=== PATIENT | male | born 1975 | race Caucasian/White ===

== ENCOUNTER 2017-01-14 12:42 | Emergency (ER) | payer OTHER ==
[2017-01-14] MEDS ORDERED: Meclizine 25 MG Tab PO ONE (12:44)
[2017-01-14] MEDS ORDERED: Ondansetron 4 MG/2 ML SDV IVPUSH ONE (12:45)
--- NOTE | 2017-01-14 12:46 | EDM.PDOC ---
ED HPI GENERAL MEDICAL PROBLEM - General Chief Complaint: Neurological Problem Stated Complaint: DIZZY Time Seen by Provider: 01/14/17 12:44 - History of Present Illness INITIAL COMMENTS - FREE TEXT/NARRATIVE: HISTORY AND PHYSICAL: History of present illness: Patient is 41-year-old white male presents with concern of dizziness with nausea and vomiting this came on acutely today and one episode in the remote past that resolved spontaneously denies any head trauma denies any visual disturbance he states this is worse with position changes and movement of his head he denies ear pain I chest pain palpitations or other concern. Review of systems: As per history of present illness and below otherwise all systems reviewed and negative. Past medical history: As per history of present illness and as reviewed below otherwise noncontributory. Surgical history: As per history of present illness and as reviewed below otherwise noncontributory. Social history: No reported history of drug or alcohol abuse. Family history: As per history of present illness and as reviewed below otherwise noncontributory. Physical exam: HEENT: Atraumatic, normocephalic, pupils reactive, negative for conjunctival pallor or scleral icterus, mucous membranes moist, throat clear, neck supple, nontender, trachea midline. Lungs: Clear to auscultation, breath sounds equal bilaterally, chest nontender. Heart: S1S2, regular, negative for clicks, rubs, or JVD. Abdomen: Soft, nondistended, nontender. Negative for masses or hepatosplenomegaly. Negative for costovertebral tenderness. Pelvis: Stable nontender. Genitourinary: Deferred. Rectal: Deferred. Extremities: Atraumatic, negative for cords or calf pain. Neurovascular unremarkable. Neuro: Awake, alert, oriented. Cranial nerves II through XII unremarkable. Cerebellum unremarkable. Motor and sensory unremarkable throughout. Exam nonfocal. Diagnostics: CBC CMP carboxyhemoglobin CT brain EKG Therapeutics: Normal saline 1 L bolus Zofran 4 mg IV meclizine 25 mg by mouth Impression: #1 vestibulopathy Definitive disposition and diagnosis as appropriate pending reevaluation and review of above. - Related Data Allergies Allergy/AdvReac Type Severity Reaction Status Date / Time No Known Allergies Allergy Verified 01/14/17 12:56 Home Meds: Home Meds ALPRAZolam [Xanax] 01/14/17 [History] ED ROS GENERAL - Review of Systems Review Of Systems: ROS reveals no pertinent complaints other than HPI. ED EXAM, GENERAL - Physical Exam Exam: See Below (See dictation) Course - Vital Signs Last Recorded V/S: Last Vital Signs Temp 36.4 C 01/14/17 12:45 Pulse 62 01/14/17 14:45 Resp 14 01/14/17 14:45 BP 116/70 01/14/17 14:45 Pulse Ox 97 01/14/17 14:45 - Orders/Labs/Meds Orders: Active Orders 24 hr Category Date Time Status EKG 12 Lead [EKG Documentation Completion] [RC] STAT Care 01/14/17 12:44 Active Chest 2V [CR] Stat Exams 01/14/17 13:47 Taken Head wo Cont [CT] Stat Exams 01/14/17 12:44 Taken Labs: Laboratory Tests 01/14/17 01/14/17 01/14/17 Range/Units 12:50 12:50 15:50 WBC 16.26 H (4.0-11.0) K/uL RBC 4.69 (4.50-5.90) M/uL Hgb 14.2 (13.0-17.0) g/dL Hct 41.1 (38.0-50.0) % MCV 87.6 (80.0-98.0) fL MCH 30.3 (27.0-32.0) pg MCHC 34.5 (31.0-37.0) g/dL RDW Std Deviation 41.5 (28.0-62.0) fl RDW Coeff of [place] 13 (11.0-15.0) % Plt Count 281 (150-400) K/uL MPV 10.40 (7.40-12.00) fL Neut % (Auto) 81.9 H (48.0-80.0) % Lymph % (Auto) 9.9 L (16.0-40.0) % [place] % (Auto) 7.4 (0.0-15.0) % Eos % (Auto) 0.4 (0.0-7.0) % Baso % (Auto) 0.4 (0.0-1.5) % Neut # (Auto) 13.3 H (1.4-5.7) K/uL Lymph # (Auto) 1.6 (0.6-2.4) K/uL [place] # (Auto) 1.2 H (0.0-0.8) K/uL Eos # (Auto) 0.1 (0.0-0.7) K/uL Baso # (Auto) 0.1 (0.0-0.1) K/uL Nucleated RBC % 0.0 /100WBC Nucleated RBCs # 0 K/uL Sodium 137 (136-146) mmol/L Potassium 3.7 (3.5-5.1) mmol/L Chloride 104 (98-110) mmol/L Carbon Dioxide 23 (21-31) mmol/L BUN 11 (6.0-23.0) mg/dL Creatinine 0.9 (0.6-1.5) mg/dL Est Cr Clr Drug Dosing TNP Estimated GFR (MDRD) > 60.0 ml/min Glucose 149 H (60-110) mg/dL Calcium 9.2 (8.8-10.8) mg/dL Total Bilirubin 0.8 (0.1-1.5) mg/dL AST 21 (5-40) IU/L ALT 14 (8-54) IU/L Alkaline Phosphatase 62 (40-150) Total Protein 6.9 (6.0-8.0) g/dL Albumin 4.2 (3.5-5.0) g/dL Globulin 2.7 (2.0-3.5) g/dL Albumin/Globulin Ratio 1.6 (1.3-2.8) Urine Color YELLOW Urine Appearance CLEAR Urine pH 6.0 (5.0-8.0) Ur Specific [place] 1.010 (1.001-1.035) Urine Protein NEGATIVE (NEGATIVE) mg/dL Urine Glucose (UA) NEGATIVE (NEGATIVE) mg/dL Urine Ketones 15 H (NEGATIVE) mg/dL Urine Occult Blood NEGATIVE (NEGATIVE) Urine Nitrite NEGATIVE (NEGATIVE) Urine Bilirubin NEGATIVE (NEGATIVE) Urine Urobilinogen 0.2 (<2.0) EU/dL Ur Leukocyte Esterase NEGATIVE (NEGATIVE) Urine RBC 0-1 (0-2/HPF) Urine WBC 0-1 (0-5/HPF) Ur Epithelial Cells RARE (NONE-FEW) Urine Bacteria RARE (NEGATIVE) Urine Mucus LIGHT (NONE-MOD) Meds: Medications Discontinued Medications Generic Name Dose Route Start Last Admin Trade Name Freq PRN Reason Stop Dose Admin Sodium Chloride 1,000 mls @ 999 mls/hr 01/14/17 12:44 01/14/17 14:43 Normal Saline IV 01/14/17 13:44 999 mls/hr .Bolus ONE Administration Meclizine HCl 25 mg 01/14/17 12:44 01/14/17 13:00 Antivert PO 01/14/17 12:45 25 mg ONETIME ONE Administration Ondansetron HCl 4 mg 01/14/17 12:45 01/14/17 13:00 Zofran IVPUSH 01/14/17 12:46 4 mg ONETIME ONE Administration Departure - Departure Time of Disposition: 16:12 Disposition: Home, Self-Care 01 Condition: Good Clinical Impression: Vestibulopathy - Discharge Information Forms: ED Department Discharge Additional Instructions: The following information is given to patients seen in the emergency department who are being discharged to home. This information is to outline your options for follow-up care. We provide all patients seen in our emergency department with a follow-up referral. The need for follow-up, as well as the timing and circumstances, are variable depending upon the specifics of your emergency department visit. If you don't have a primary care physician on staff, we will provide you with a referral. We always advise you to contact your personal physician following an emergency department visit to inform them of the circumstance of the visit and for follow-up with them and/or the need for any referrals to a consulting specialist. The emergency department will also refer you to a specialist when appropriate. This referral assures that you have the opportunity for followup care with a specialist. All of these measure are taken in an effort to provide you with optimal care, which includes your followup. Under all circumstances we always encourage you to contact your private physician who remains a resource for coordinating your care. When calling for followup care, please make the office aware that this follow-up is from your recent emergency room visit. If for any reason you are refused follow-up, please contact the [facility] emergency department at and asked to speak to the emergency department charge nurse. [facility] [address] [place] [id number] Meclizine as prescribed push fluids and follow-up with clinic above as discussed return as needed as discussed - My Orders Last 24 Hours: My Active Orders 01/14/17 12:44 EKG 12 Lead [EKG Documentation Completion] [RC] STAT Head wo Cont [CT] Stat 01/14/17 13:47 Chest 2V [CR] Stat - Assessment/Plan Last 24 Hours: My Active Orders 01/14/17 12:44 EKG 12 Lead [EKG Documentation Completion] [RC] STAT Head wo Cont [CT] Stat 01/14/17 13:47 Chest 2V [CR] Stat
[2017-01-14] MEDS: Sodium Chloride 0.9% 1,000 ML IV ONE ×2 (13:00→14:43)
[2017-01-14 13:52] LABS: CHLORIDE,CL 104 mmol/L (98-110); SODIUM,NA 137 mmol/L (136-146)
[2017-01-14 16:27] VITALS: BP 126/68
--- NOTE | 2017-01-15 16:30 | CT ---
EXAM DATE: 01/14/17 PATIENT'S AGE: 41 Patient: FELIX GREENBERG Facility: [place], [place] Site . Site : 1975 Study: CT Head [id number]/17/2017 2:34:02 PM Ordering Physician: Camryn Ferrari Final Report: INDICATION: Dizziness TECHNIQUE: Noncontrast CT of the brain was performed with images acquired from skull base to vertex. COMPARISON: None available. FINDINGS: There is no acute intracranial hemorrhage. Ventricles are of normal size and morphology. No mass effect or midline shift is present. The barker-white matter differentiation is normal. The visualized portions of the orbits are normal. The visualized portions of the mastoids are normal. The visualized portions of the paranasal sinuses are normal. No fractures are identified. IMPRESSION: Normal noncontrast head CT Please note that all CT scans at this facility use dose modulation, iterative reconstruction, and/or weight-based dosing when appropriate to reduce radiation dose to as low as reasonably achievable. Dictated by Terrance Peace MD @ Jan 14 2017 2:38PM (Electronic Signature) Report Signed by Proxy. [facility] HOSPITALMei
--- NOTE | 2017-01-15 16:31 | CR ---
EXAM DATE: 01/14/17 PATIENT'S AGE: 41 Patient: FELIX GREENBERG Facility: [place], [place] Site . Site : 1975 Study: XRay Chest [id number]/17/2017 2:35:08 PM Ordering Physician: Camryn Ferrari Final Report: Indication dyspnea Technique: Chest x-ray. Findings: Normal cardiac mediastinal silhouette. Lungs are clear of an acute airspace or interstitial process. No effusion appearing no pneumothorax. Impression: 1. No acute pulmonary process. Dictated by Rekha Yost MD @ Jan 14 2017 3:04PM (Electronic Signature) Report Signed by Proxy. [email or web address]
== END 2017-01-14 16:30 | disposition home or self-care (01) ==
LOC: MW.ED 12:42
DX: H81.20 Vestibular neuronitis, unspecified ear (principal)
CPT/HCPCS: 36415; 70450; 71020; 80053; 81001; 85025; 93005; 96361; 96374; 99285; A9270; J2405; J7040; 99282